=== PATIENT | female | born 1935 | race Caucasian/White ===

== ENCOUNTER → 2022-01-20 | Outpatient (CLI) | payer MEDICARE ==
--- NOTE | 2022-01-20 16:25 | RAD ---
EXAM: XR CHEST 2V 01/20/2022 11:05 AM CLINICAL INDICATION: COPD COMPARISON: None TECHNIQUE: PA and lateral views of the chest. FINDINGS: There is a dual-lead pacemaker/AICD. The heart is normal in size. The lungs are hyperexpand ed. 7 mm nodule versus prominent vessel in the right perihilar region. The lungs are otherwise clear. No pleural effusion or pneumothorax. There are bilateral shoulder prostheses. IMPRESSION: 7 mm nodule versus prominent vessel in the right perihilar region. Recommend CT to [facility] evaluate. Electronically signed by: Alysha Edwards MD (01/20/2022 4:23 PM) [id number]
== END ==
LOC: RAD 10:44
PROVIDERS: ATTEND Internal Medicine Critical Care Medicine
DX: R91.8 Other nonspecific abnormal finding of lung field (principal); Z95.0 Presence of cardiac pacemaker; Z96.612 Presence of left artificial shoulder joint; Z96.611 Presence of right artificial shoulder joint
CPT/HCPCS: 71046

== ENCOUNTER → 2022-01-26 | Outpatient (CLI) | payer MEDICARE ==
--- NOTE | 2022-01-26 12:24 | RAD ---
EXAM: Chest CT without intravenous contrast. HISTORY: Abnormal chest radiograph. Right perihilar nodule or vessel. TECHNIQUE: Computed tomographic images of the chest were obtained without contrast. Multiplanar refor matting was performed. *One or more of the following individualized dose reduction techniques were utilized for this examina tion: 1. Automated exposure control. 2. Adjustment of the mA and/or kV according to patient size. 3. Use of iterative reconstruction technique. COMPARISON: Chest radiograph dated 01/20/2022. FINDINGS: The heart is normal in size. There is coronary artery calcification. There is aortic and ao rtic branch vessel calcified atherosclerotic plaque. There is a left chest wall cardiac pacemaker wit h leads in expected position. No pathologically enlarged mediastinal or hilar lymph node is seen. There is no pneumothorax or pleural effusion. There is mild pulmonary emphysema with biapical predomi nant pleural parenchymal scarring. There is medial right middle lobe and lingular atelectasis or scar ring. There is a 1.7 cm nonspecific groundglass opacity within the superior segment of the left lower lobe. There is a 4 mm nodule within the left lower lobe (series 3, image 1 and 66). There is a 3 mm nodule and adjacent 3 mm nodular opacity possibly due to volume averaging of a pulmonary vessel withi n the lateral left lower lobe. There is a 4 mm nodule within the left lung base (series 3, image 257) . There is a 4 mm nodule within the lateral right lower lobe (series 3, image 167). There are few add itional smaller peripheral pulmonary nodules within the lateral right lower lobe measuring up to 3 mm . There is no acute finding involving the upper abdomen. There is a 1.8 cm hypodense lesion within the left kidney, the attenuation which favors a cyst. There is no acute or suspicious osseous finding. IMPRESSION: 1. Multiple small bilateral pulmonary nodules measuring up to 4 mm and 1.7 cm groundglass opacity wit hin the left lower lobe, the latter of which may be postinflammatory or postinfectious in etiology. F ollow-up with a chest CT in 12 months can be performed to confirm benignity. 2. Emphysema. 3. Coronary artery calcification. 4. Hypodense lesion within the left kidney, the attenuation of which favors a cyst. Renal sonography can confirm benignity if not previously performed. Electronically signed by: Karen Wick MD (01/26/2022 11:46 AM) [id number]
== END ==
LOC: CT 08:00
PROVIDERS: ATTEND Internal Medicine Critical Care Medicine
DX: R91.8 Other nonspecific abnormal finding of lung field (principal); J43.9 Emphysema, unspecified; I25.10 Atherosclerotic heart disease of native coronary artery without angina pectoris; N28.89 Other specified disorders of kidney and ureter; I70.8 Atherosclerosis of other arteries
CPT/HCPCS: 71250